=== PATIENT | male | born 1995 | race Caucasian/White ===

== ENCOUNTER 2025-07-24 14:02 | Emergency (ER) | payer MEDICAID ==
[~2025-07-24] VITALS: Ht 167.6 cm; Wt 63.0 kg
[2025-07-24 14:06] VITALS: O2SAT 98
[2025-07-24 14:42] LABS: BASOPHILS % 0.1 % (0.0-2.0); EOSINOPHILS % 0.2 % (0.0-5.0); HEMATOCRIT. 43.9 % (42.0-52.0); HEMOGLOBIN. 14.9 g/dL (14.0-18.0); LYMPHOCYTES % 16.8 % (20.0-50.0); MEAN PLATELET VOLUME 7.9 fl (7.4-10.4); MONOCYTES % 4.8 % (2.0-8.0); NEUTROPHILS % 78.1 % (40.0-76.0); PLATELET 284 x1000/uL (130-400); RED BLOOD CELL COUNT 5.14 mill/uL (4.7-6.1); RED CELL DISTRIBUTION WIDTH 13.3 % (11.6-14.6)
[2025-07-24 14:51] LABS: CREATININE 1.1 mg/dL (0.6-1.3); UREA NITROGEN BLOOD 11 mg/dL (9-23)
[2025-07-24 14:52] LABS: TROPONIN I HIGH SENSITIVITY < 4 ng/L (3.0-53)
[2025-07-24 16:40] VITALS: TEMP 36.8
[2025-07-24 16:45] LABS: TROPONIN I HIGH SENSITIVITY < 4 ng/L (3.0-53)
[2025-07-25 00:15] VITALS: BP 104/66; PULSE 60; RESP 15; O2SAT 100
== END 2025-07-25 00:30 | disposition home or self-care (01) ==
LOC: ER 14:02 → CMPBEDREQ 07-25 07:42
DX: R07.9 Chest pain, unspecified (principal); E78.00 Pure hypercholesterolemia, unspecified
CPT/HCPCS: 36415; 71045; 80048; 84484; 85025; 93005; 99285